=== PATIENT | female | born 1960 | race Caucasian/White ===

== ENCOUNTER 2022-08-26 10:11 | Emergency (ER) | payer SELFPAY ==
[2022-08-26] MEDS ORDERED: Methocarbamol 1 GM/10 ML VIAL IM SCH (11:15)
== END 2022-08-26 12:02 | disposition home or self-care (01) ==
LOC: CSHERS 10:11
DX: M25.511 Pain in right shoulder (principal); K21.9 Gastro-esophageal reflux disease without esophagitis
CPT/HCPCS: 93005; 96372; J2800